=== PATIENT | female | born 1995 | race Caucasian/White ===

== ENCOUNTER 2022-07-02 18:18 | Emergency (ER) | payer BC ==
[~2022-07-02] VITALS: Ht 162.6 cm; Wt 57.2 kg
[2022-07-02 18:37] VITALS: BP 137/87
--- NOTE | 2022-07-02 19:15 | NUR ---
FLU SWAB COLLECTED.
[2022-07-02] MEDS ORDERED: PROM118S5 PO (19:37)
[2022-07-02] MEDS ORDERED: IBUP-1842 PO (19:37)
--- NOTE | 2022-07-02 19:55 | NUR ---
Patient discharged with v/s stable. Written and verbal after care instructions given and explained. Patient verbalized understanding. Ambulatory with steady gait. All questions addressed prior to discharge. Advised to follow up with PMD.
== END 2022-07-02 19:55 | disposition home or self-care (01) ==
LOC: MED 18:18
DX: J06.9 Acute upper respiratory infection, unspecified (principal)
CPT/HCPCS: 71045; 99284

== ENCOUNTER 2022-07-04 21:22 | Emergency (ER) | payer BC ==
[~2022-07-04] VITALS: Ht 162.6 cm; Wt 56.7 kg
[~2022-07-04 21:22] MED LIST: IBUP-1842 PO; PROM118S5 PO
[2022-07-04 21:23] VITALS: BP 106/65
--- NOTE | 2022-07-04 21:29 | NUR ---
TO BED 6 FOLLOWING TRIAGE Addendum: 07/04/22 at 2132 by ZACK TO C
--- NOTE | 2022-07-04 21:34 | NUR ---
Patient taken to bed 4.
--- NOTE | 2022-07-04 21:40 | NUR ---
Dr. Jones examining patient.
[2022-07-04 21:55] VITALS: BP 106/65
== END 2022-07-04 21:55 | disposition home or self-care (01) ==
LOC: MED 21:22
DX: T16.1XXA Foreign body in right ear, initial encounter (principal); Z79.899 Other long term (current) drug therapy; X58.XXXA Exposure to other specified factors, initial encounter; Y93.89 Activity, other specified; Y92.89 Other specified places as the place of occurrence of the external cause; Y99.8 Other external cause status
CPT/HCPCS: 69200; 99284